=== PATIENT | male | born 1940 | race Caucasian/White ===

== ENCOUNTER 2017-07-12 09:46 | Emergency (ER) | payer OTHER, MEDICAID ==
[2017-07-12 11:36] VITALS: BP 144/78
== END 2017-07-12 11:36 | disposition home or self-care (01) ==
LOC: ED 09:46
DX: B02.9 Zoster without complications (principal); E11.9 Type 2 diabetes mellitus without complications; I10 Essential (primary) hypertension; E78.00 Pure hypercholesterolemia, unspecified
CPT/HCPCS: J1885; J3010; J7512; Q0162